=== PATIENT | female | born 1995 | race Caucasian/White ===

== ENCOUNTER 2018-04-30 22:43 | Emergency (ER) | payer SELFPAY ==
[~2018-04-30] VITALS: Ht 162.6 cm; Wt 52.2 kg
[2018-04-30 22:48] VITALS: BP 136/69; Ht 162.6 cm; Wt 52.2 kg
== END 2018-05-01 01:39 | disposition left against medical advice (07) ==
LOC: ED 22:43
DX: Z53.21 Procedure and treatment not carried out due to patient leaving prior to being seen by health care provider (principal)

== ENCOUNTER 2018-08-01 18:50 | Emergency (ER) | payer OTHER ==
[~2018-08-01] VITALS: Ht 162.6 cm; Wt 55.3 kg
[2018-08-01 18:58] VITALS: Ht 162.6 cm; Wt 55.3 kg
[2018-08-01 21:05] VITALS: BP 118/75
== END 2018-08-01 21:05 | disposition home or self-care (01) ==
LOC: ED 18:50
DX: B37.3 Candidiasis of vulva and vagina (principal)

== ENCOUNTER 2018-11-06 09:08 | Emergency (ER) | payer OTHER ==
[~2018-11-06] VITALS: Ht 162.6 cm; Wt 50.9 kg
[2018-11-06 09:12] VITALS: Ht 162.6 cm; Wt 50.9 kg
[2018-11-06 11:06] LABS: UA SPECIFIC GRAVITY 1.015 (1.005-1.035); microscopic required? YES; urine erythrocyte 2+ (NEGATIVE)
[2018-11-06 12:19] VITALS: BP 151/55
== END 2018-11-06 12:19 | disposition home or self-care (01) ==
LOC: ED 09:08
PROVIDERS: Specialist
DX: B37.3 Candidiasis of vulva and vagina (principal); N39.0 Urinary tract infection, site not specified
CPT/HCPCS: 87491; 87591; J0696

== ENCOUNTER 2018-11-16 14:06 | Emergency (ER) | payer OTHER ==
[~2018-11-16] VITALS: Ht 160 cm; Wt 48.5 kg
[2018-11-16 14:23] VITALS: Ht 160 cm; Wt 48.5 kg
[2018-11-16 17:20] VITALS: BP 117/74
== END 2018-11-16 17:31 | disposition home or self-care (01) ==
LOC: ED 14:06
DX: B34.9 Viral infection, unspecified (principal); M79.10 Myalgia, unspecified site

== ENCOUNTER 2019-03-05 11:10 | Emergency (ER) | payer BC, OTHER ==
[~2019-03-05] VITALS: Ht 162.6 cm; Wt 48.5 kg
[2019-03-05 11:19] VITALS: BP 102/65
== END 2019-03-05 12:05 | disposition home or self-care (01) ==
LOC: ED 11:10
DX: J03.90 Acute tonsillitis, unspecified (principal); R11.10 Vomiting, unspecified; Z86.2 Personal history of diseases of the blood and blood-forming organs and certain disorders involving the immune mechanism